=== PATIENT | male | born 1975 | race Hispanic/Latino ===

== ENCOUNTER 2024-07-07 10:59 | Emergency (ER) | payer SELFPAY ==
[2024-07-07 11:02] VITALS: BP 136/85
[2024-07-07 11:04] VITALS: BP 136/85
[2024-07-07 11:08] LABS: Glucose - Point of Care 372 mg/dl (70-99)
[2024-07-07 11:09] VITALS: BMI 26.8
[2024-07-07] MEDS: NSS 500 IV (11:18)
[2024-07-07 11:38] LABS: % Eosinophils 1.9 % (0-6); % Immature Granulocytes 0.3 % (0-0.5); % Monocytes 6.9 % (1.7-9.3); % Neutrophils 61.9 % (42.2-75.2); Absolute Basophils 0.1 10^3/uL (0-0.2); Absolute Eosinophils 0.1 10^3/uL (0-0.7); Absolute Lymphocytes 1.8 10^3/uL (1.2-3.4); Absolute Monocytes 0.4 10^3/uL (0.1-0.6); Absolute Neutrophils 3.9 10^3/uL (1.4-6.5); Hematocrit 47.1 % (39.0-52.0); Hemoglobin 16.6 g/dL (13.0-18.0); Mean Corp Hgb Conc. 35.2 g/dL (33.0-37.0); Mean Corpuscular Hgb 31.1 pg (27.0-31.0); Mean Corpuscular Volume 88.4 fL (80.0-94.0); Mean Platelet Volume 10.2 fL (7.4-10.4); Nucleated Red Blood Cells % 0 % (-); Platelet Count 216 10^3/uL (130-400); Red Blood Cell Count 5.33 10^6/uL (4.70-6.10); Red Cell Dist. Width 12.8 % (11.5-14.5); White Blood Cell Count 6.3 10^3/uL (4.8-10.8)
[2024-07-07 11:51] LABS: ALT (SGPT) 28 U/L (0-50); AST (SGOT) 24 U/L (17-59); Albumin 4.8 g/dl (3.5-5.0); Alkaline Phosphatase 112 U/L (38-126); Blood Urea Nitrogen 21 mg/dl (9-20); Calcium 9.6 mg/dl (8.4-10.2); Carbon Dioxide 27 mmol/L (22-30); Chloride 98 mmol/L (98-107); Estimated Creatinine Clearance 86 ml/min; Glucose 398 mg/dl (70-99); Sodium 137 mmol/L (135-145); Total Bilirubin 1.1 mg/dl (0.2-1.3); Total Protein 7.5 g/dl (6.3-8.2); eGFR > 60.00
[2024-07-07 11:59] LABS: Troponin I < 0.012 ng/ml
[2024-07-07 12:00] VITALS: BP 117/83
[2024-07-07 13:00] VITALS: BP 124/90
--- NOTE | 2024-07-07 13:33 | ED.GENMED ---
History of Present Illness
General
Chief Complaint: Fainting/Passed Out
Source: patient
Exam Limitations: none
Time Seen by Provider: 07/07/24 12:09
History of Present Illness
History of Present Illness:
48-year-old male presents for evaluation. He was called as a rapid response on the floor. He was visiting his boss. He states his boss's lungs are collapsing and he is very sick. He passed out in the room and fell. He was told he hit his head
but he denies a headache. He denies preceding chest. He denies blurry vision or double vision. He denies palpitations or shortness of breath. No prior medical history diagnosed. He does not seek health care regularly.
Phy Exam
Physical Exam
Physical Exam:
General: Well-appearing male no acute distress
HEENT: Normocephalic atraumatic pupils equal round reactive to light
Heart: Regular rate and rhythm no murmurs
Lungs: Clear no wheeze
Neurologic exam: Alert and oriented x 3
Extremities: No cyanosis
Skin: Warm no rash
Course
Orders/Labs/Results
Orders:
Orders
07/07/24 11:07
Electrocardiogram (*1) Urgent
Reason for Study: Syncope
EKG- Treatment ONCE
07/07/24 11:12
CMP [Comprehensive Metabolic Panel] Urgent
Complete Blood Count/With Diff Urgent
Glycohemoglobin (HgbA1c) Urgent
Troponin I Urgent
07/07/24 11:18
0.9% Sodium Chloride 500 ml [Nss] 500 ml IV BOLUS
07/07/24 13:36
Add On- LAB Urgent
Tests Added?: hemoglobin A1C
Abnormal Lab Results
07/07/24 07/07/24
11:07 11:12
MCH 31.1 H pg
(27.0-31.0)
BUN 21 H mg/dl
(9-20)
Glucose 398 H mg/dl
(70-99)
POC Glucose 372 H mg/dl
(70-99)
07/07/24 11:12
07/07/24 11:12
Vital Signs
Initial and Last Documented VS:
Initial Vital Signs
Temp Pulse Resp BP Pulse Ox
98.2 F 76 18 136/85 97
07/07/24 11:02 07/07/24 11:02 07/07/24 11:02 07/07/24 11:02 07/07/24 11:02
Last Documented Vital Signs
Temp Pulse Resp BP Pulse Ox
98.2 F 67 16 124/90 96
07/07/24 11:02 07/07/24 13:00 07/07/24 13:00 07/07/24 13:00 07/07/24 13:00
*Critical Care Note
Total Time (30-74mins, 75-104mins- exclusive of procedures): Not Applicable
Update Note
Update Note:
Patient here after syncopal episode while seeing his boss in the hospital room. Suspect vasovagal. Will check for arrhythmias electrolyte abnormalities anemia etc. Patient has no complaints offered. No signs of overt trauma to his head. No
indication for imaging of his head.
Incidentally upon review of labs patient's serum glucose is 398. He has no complaints of polyuria or polydipsia. He has not known about a diagnosis of diabetes. Will reach out to environmental educator for guidance.
Spoke with diabetic nurse educator. They recommended 500 mg of metformin twice a day as well as glipizide 2.5 mg twice a day. They pointed that the patient in the direction of [facility] to obtain a glucometer, lancets and test strips. This
information was relayed to the patient. Advise that he follow-up with clinic for further evaluation. Hemoglobin A1c was added
ED Attending Note
-
Portions of this chart may have been created with voice recognition software.� Occasional wrong word or��sound alike� substitutions may have occurred due to the inherent limitations of voice recognition software.
Discharge Plan
Departure
Patient Disposition: Home (Routine Discharge)
Date of Disposition: 07/07/24
Time of Disposition: 13:57
Patient with high blood pressure during this ER visit?: No
Discharge Problem:
Syncope, Hyperglycemia
Prescriptions:
New
metformin 500 mg tablet
500 mg PO BID Qty: 60 0RF
glipizide 2.5 mg tablet
2.5 mg PO BID Qty: 60 0RF
Referrals:
UNKNOWN - PT DOES,NOT KNOW [Family Provider] -
Activity Restrictions/Additional Instructions:
Please fill your prescription for medicine to lower your blood sugar. Take metformin 500 mg twice a day and glipizide 2.5 mg twice a day. Go to [employer] and buy the [id number] ReliOn glucometer, lancets and test strips. This will give you a
90-day supply. Please follow-up with free clinic for further recommendations. Return if worse. You need to go to the [facility] free clinic as you are a [facility] resident.
Interventions
Interventions:
*Risk Screen - Suicide Last Done: 07/07/24 11:02
*General Assessment Last Done: 07/07/24 11:02
*Neglect/Abuse Screening Last Done: 07/07/24 11:02
ED- Fall Risk Assessment Last Done: 07/07/24 11:09
*ED COVID-19 Vaccine History Last Done: 07/07/24 11:09
ED- Cardiac Assessment Last Done: 07/07/24 11:10
ED- Neurological Assessment Last Done: 07/07/24 11:10
Discharge Date and Time
Print Language: ROMANSH
[2024-07-07 14:42] LABS: Glucose - Point of Care 355 mg/dl (70-99)
[2024-07-08 10:39] LABS: Glycohemoglobin (HgbA1c) 9.7 % (4.0-5.6)
== END 2024-07-07 14:27 | disposition home or self-care (01) ==
LOC: EMR 10:59
PROVIDERS: Physician Assistant; EMERGENCY PHYSICIAN Emergency Medicine
DX: R55 Syncope and collapse (principal); R73.9 Hyperglycemia, unspecified; W19.XXXA Unspecified fall, initial encounter
CPT/HCPCS: 99283; 96360; 80053; 82962; 83036; 84484; 85025; 93005